=== PATIENT | female | born 1955 | race Caucasian/White ===

== ENCOUNTER → 2017-05-28 | Day surgery (SDC) | payer OTHER ==
[~2017-05-28] VITALS: Ht 162.6 cm; Wt 79.5 kg
[~2017-05-28] MED LIST: ATV/1 PO; DOXY100C76 PO; LIDOCAINE HCL 2% 2 ML VIAL (20MG/ML) ONE; MIDAZOLAM HCL 1 MG/ML 2ML VIAL ONE; MULT1PAK6 PO; ONDANSETRON INJ 2 MG/ML 2 ML VIAL IV PRN; PROPOFOL IV EMULSION 10 MG/ML 20 ML VIAL IV ONE; SCOPOLAMINE 1.5 MG TDSY TD ONE; [UNRECOGNIZED DRUG - OTHER] PO
[2017-05-28 13:47] VITALS: Ht 162.6 cm; Wt 79.5 kg
--- NOTE | 2017-05-28 13:56 | Endo History and Physical ---
History & Physical Date of Service: May 28, 2017. Chief Complaint: Colon cancer screening Referring Physician: History of Present Illness Patient for surveillance colonoscopy today. Last examination was approximately 5 years ago. She denies having any specific symptoms today. Past Surgical History Hx Cardiac Surgery: No Hx Internal Defibrillator: No Hx Pacemaker: No Hx Abdominal Surgery: No Hx of Implantable Prosthesis: No Hx Post-Op Nausea and Vomiting: No Hx Cancer Surgery: Yes (PARTIAL THYROIDECTOMY) Hx Thoracic Surgery: No Hx Orthopedic: No Hx Urinary Tract Surgery: No Family History Colon CA Social History Smoking Status: Former Smoker Hx Substance Use: No Hx Alcohol Use: Yes ("A FEW DRINKS/WEEK") Allergies Coded Allergies: Latex (Verified Allergy, Intermediate, IRRITATED SKIN, 05/16/17) Penicillins (Verified Allergy, Unknown, COUGH AND FEVER, 05/28/17) Current Medications Reported Home Medications Medications Dose Route/Sig Max Daily Dose Days Date Category Monodox (Doxycycline Monohydrate) 100 Mg Cap 100 Mg PO 05/28/17 Reported Ativan (Lorazepam) 1 Mg Tab 0.5-1 Tab PO HS PRN 05/16/17 Reported [Ningxia] 2 Oz PO QAM 05/16/17 Reported Emergen-C Vitamin C (Multiple Vitamins W/ Minerals) 1 Brandan Brandan 1 Pkt PO QAM 05/16/17 Reported Vital Signs Weight (Kilograms): 79.55 Height (Feet): 5 Height (Inches): 4 Date Time Temp Pulse Resp B/P (MAP) Pulse Ox O2 Delivery O2 Flow Rate FiO2 05/28/17 13:45 37.1 78 20 135/80 (98) 96 Room Air Physical Exam General Appearance: no apparent distress Respiratory/Chest: Auscultation: breath sounds normal Cardiovascular: Heart Auscultation: RRR Abdomen: Bowel Sounds: normal Inspection & Palpation: soft Assessment and Plan Patient for colorectal cancer screening today. We have discussed the risks to include bleeding, infection, perforation and pain.
--- NOTE | 2017-05-28 14:44 | Discharge Instructions ---
Endoscopy Patient Instructions Date / Procedure(s) Performed May 28, 2017. Colonoscopy Allergy Information Coded Allergies: Latex (Verified Allergy, Intermediate, IRRITATED SKIN, 05/16/17) Penicillins (Verified Allergy, Unknown, COUGH AND FEVER, 05/28/17) Discharge Date / Findings May 28, 2017. Diverticulosis of the left colon Internal hemorrhoids Medication Instructions Reported Home Medications Medications Dose Route/Sig Max Daily Dose Days Date Category Monodox (Doxycycline Monohydrate) 100 Mg Cap 100 Mg PO 05/28/17 Reported Ativan (Lorazepam) 1 Mg Tab 0.5-1 Tab PO HS PRN 05/16/17 Reported [Ningxia] 2 Oz PO QAM 05/16/17 Reported Emergen-C Vitamin C (Multiple Vitamins W/ Minerals) 1 Brandan Brandan 1 Pkt PO QAM 05/16/17 Reported Provider Instructions Activity Restrictions - No exercising or heavy lifting for 24 hours. - Do not drink alcohol the day of the procedure. - Do not drive a car or operate machinery until the day after the procedure. - Do not make any important decisions or sign important papers in 24 hours after the procedure. Following Day: - Return to full activity which may include returning to work/school. Diet Start your diet with liquids and light foods (jello, soup, juice, toast). Then eat your usual diet if not nauseated. Treatment For Common After Affects For mild abdominal pain, bloating, or excessive gas: - Rest - Eat lightly - Lie on right side Follow-Up Information Consider addition of a fiber supplement (fiber gummies, 1-2 per day) Repeat colonoscopy in 5 years Anesthesia Information What You Should Know You have had a procedure that required some medicine to reduce anxiety and discomfort. This treatment is called moderate sedation. After receiving the treatment, you may be sleepy, but you will be able to breathe on your own. The effects of the treatment may last for several hours. Follow these instructions along with Activity/Diet recommendations noted above: * Do NOT do anything where dizziness or clumsiness would be dangerous. * Rest quietly at home today, then you can be up and about tomorrow. * Have a responsible person stay with you the rest of today. * You may have had an I.V. today. If so, you may take the dressing off later today. Recommendations Call your doctor if: * Trouble breathing * Continuous vomiting for more than 24 hours * Temperature above 101 degrees * Severe abdominal pain or bloating * Pain not relieved by pain medicine ordered * There is increased drainage or redness from any incision * A large amount of rectal bleeding greater than 2-3 tablespoons. (If you had a polyp/s removed or have hemorrhoids, a small amount of blood - from the rectum is to be expected.) * You have any unanswered questions or concerns. IN THE EVENT OF A SERIOUS EMERGENCY, GO TO THE NEAREST EMERGENCY ROOM Your discharge instructions were prepared by provider Jose Cancino. Patient Instructions Signature Page Ann Souza Patient (or Guardian) Signature/Date: I have read and understand the instructions given to me by my caregivers. Caregiver/RN/Doctor Signature/Date: The above-named patient and/or guardian has received patient instructions on this date. + Original Patient Signature Page (only) stays with chart. Please make copy for patient.
--- NOTE | 2017-05-28 14:51 | GI REPORT ---
Procedure Date: 05/28/2017 2:09 PM Procedure: Colonoscopy Indications: Screening for colon cancer: Family history of colorectal cancer in distant relative(s) Medicines: Monitored Anesthesia Care Complications: No immediate complications. Estimated blood loss: Minimal. Estimated Blood Loss: Estimated blood loss was minimal. Procedure: Pre-Anesthesia Assessment: - Prior to the procedure, a History and Physical was performed, and patient medications, allergies and sensitivities were reviewed. The patient's tolerance of previous anesthesia was reviewed. - The risks and benefits of the procedure and the sedation options and risks were discussed with the patient. All questions were answered and informed consent was obtained. - Patient identification and proposed procedure were verified prior to the procedure by the physician, the nurse and the flash ranging crewmember. The procedure was verified in the procedure room. - Pre-procedure physical examination revealed no contraindications to sedation. - ASA Grade Assessment: II - A patient with mild systemic disease. - After reviewing the risks and benefits, the patient was deemed in satisfactory condition to undergo the procedure. - The anesthesia plan was to use monitored anesthesia care (MAC). - Immediately prior to administration of medications, the patient was re-assessed for adequacy to receive sedatives. - The heart rate, respiratory rate, oxygen saturations, blood pressure, adequacy of pulmonary ventilation, and response to care were monitored throughout the procedure. - The physical status of the patient was re-assessed after the procedure. After I obtained informed consent, the scope was passed under direct vision. Throughout the procedure, the patient's blood pressure, pulse, and oxygen saturations were monitored continuously. The Scope was introduced through the anus and advanced to the terminal ileum. The colonoscopy was somewhat difficult due to multiple diverticula in the colon. Successful completion of the procedure was aided by withdrawing and reinserting the scope. The patient tolerated the procedure well. The quality of the bowel preparation was good. Findings: The digital rectal exam findings include non-thrombosed external hemorrhoids. Pertinent negatives include normal sphincter tone. The terminal ileum appeared normal. Many small and large-mouthed diverticula were found in the sigmoid colon and in the descending colon. Internal hemorrhoids were found during retroflexion. The hemorrhoids were mild. The exam was otherwise without abnormality. Impression: - Non-thrombosed external hemorrhoids found on digital rectal exam. - The examined portion of the ileum was normal. - Mild diverticulosis in the sigmoid colon and in the descending colon. - Internal hemorrhoids. - The examination was otherwise normal. - No specimens collected. Recommendation: - Discharge patient to home (ambulatory). - Advance diet as tolerated today. - Use fiber, for example Citrucel, Fibercon, Konsyl or Metamucil. - Repeat colonoscopy in 5 years for screening purposes. - Return to GI office PRN. Jose Cancino D.O. Jose Cancino, 05/28/2017 2:50:44 PM This report has been signed electronically. Note Initiated On: 05/28/2017 2:09 PM I attest to the content of the Intraoperative Record and orders documented therein, exceptions below
[2017-05-28 14:55] VITALS: BP 123/83; PULSE 72; O2SAT 96
--- NOTE | 2017-05-28 15:03 | Anesthesiology Progress Note ---
Anesthesia Post Op Note Date & Time May 28, 2017 at 15:03 Vital Signs Pain Intensity: 0 Vital Signs Past 12 Hours Date Time Temp Pulse Resp B/P (MAP) Pulse Ox O2 Delivery O2 Flow Rate FiO2 05/28/17 14:39 72 16 138/100 (113) 95 Room Air 05/28/17 13:45 37.1 78 20 135/80 (98) 96 Room Air Notes Mental Status: alert / awake / arousable, participated in evaluation Pt Amnestic to Procedure: Yes Nausea / Vomiting: adequately controlled Pain: adequately controlled Airway Patency, RR, SpO2: stable & adequate BP & HR: stable & adequate Hydration State: stable & adequate Anesthetic Complications: no major complications apparent
== END | disposition home or self-care (01) ==
LOC: C.GI 13:29
PROVIDERS: ATTEND Internal Medicine Gastroenterology
DX: Z12.11 Encounter for screening for malignant neoplasm of colon (principal); K57.30 Diverticulosis of large intestine without perforation or abscess without bleeding; Z80.0 Family history of malignant neoplasm of digestive organs; Z87.891 Personal history of nicotine dependence; K64.4 Residual hemorrhoidal skin tags

== ENCOUNTER → 2017-09-04 | Outpatient (CLI) | payer OTHER ==
[~2017-09-04] MED LIST changes: -LIDOCAINE HCL 2% 2 ML VIAL (20MG/ML) ONE; -MIDAZOLAM HCL 1 MG/ML 2ML VIAL ONE; -ONDANSETRON INJ 2 MG/ML 2 ML VIAL IV PRN; -PROPOFOL IV EMULSION 10 MG/ML 20 ML VIAL IV ONE; -SCOPOLAMINE 1.5 MG TDSY TD ONE
--- NOTE | 2017-09-04 15:23 | MAMMOGRAPHY REPORT ---
BILATERAL DIGITAL SCREENING MAMMOGRAM TOMOSYNTHESIS WITH CAD: 09/04/2017 CLINICAL HISTORY: Routine screening. Patient has no complaints. TECHNIQUE: Breast tomosynthesis in addition to standard 2D mammography was performed. Current study was also evaluated with a Computer Aided Detection (CAD) system. COMPARISON: Comparison is made to exams dated: 07/30/2016 mammogram, 09/08/2014 mammogram, 02/27/2013 m ammogram, 07/09/2011 mammogram, 07/07/2010 mammogram, and 07/06/2009 mammogram - [facility] enter. BREAST COMPOSITION: The tissue of both breasts is heterogeneously dense, which may obscure small mas ses. FINDINGS: No suspicious masses, calcifications, or areas of architectural distortion are noted in ei ther breast. There has been no significant interval change compared to prior exams. Right medial gokul ast asymmetry is stable compared to multiple prior exams. IMPRESSION: ACR BI-RADS CATEGORY 2: BENIGN There is no mammographic evidence of malignancy. A 1 year screening mammogram is recommended. The pa tient will receive written notification of the results. Approximately 10% of breast cancers are not detected with mammography. A negative mammographic report should not delay biopsy if a clinically suggestive mass is present. Pauline Davidson M.D. /:09/04/2017 12:45:01 Anesthesiologist Assistant Certified: Rosario BOSE)(M), [facility] letter sent: Normal 1/2 BI-RADS Code: ACR BI-RADS Category 2: Benign
== END | disposition home or self-care (01) ==
LOC: C.MAMM 10:20
PROVIDERS: ATTEND Family Medicine
DX: Z12.31 Encounter for screening mammogram for malignant neoplasm of breast (principal)

== ENCOUNTER 2018-03-26 19:46 | Emergency (ER) | payer OTHER ==
[~2018-03-26] VITALS: Ht 167.6 cm; Wt 82.2 kg
[2018-03-26 19:56] VITALS: TEMP 36.5; Ht 167.6 cm; Wt 82.2 kg
[2018-03-26 20:29] VITALS: O2SAT 99
[2018-03-26 20:36] LABS: BASO % 0.4 %; BASO ABS # 0.04 K/uL (0-0.2); EOS % 0.3 %; EOS ABS # 0.03 K/uL (0-0.5); HEMATOCRIT 40.7 % (37-47); HEMOGLOBIN 13.9 g/dL (12.0-16.0); IG# 0.03 K/uL (0.00-0.02); LYMPH % 15.8 %; MEAN CELL VOLUME 84.8 fL (80-100); MEAN CORPUSCULAR HGB CONC 34.2 g/dl (32-36); MEAN PLATELET VOLUME 11.1 fL (7.4-10.4); MONO % 6.8 %; MONO ABS # 0.65 K/uL (0.11-0.59); NEUT % 76.4 %; NEUT ABS # 7.24 K/uL (1.4-6.5); PLATELET COUNT 211 K/uL (130-400); RED CELL DISTRIBUTION WIDTH CV 12.7 % (11.5-14.5); RED CELL DISTRIBUTION WIDTH SD 39.5 fL (36.4-46.3); WHITE BLOOD COUNT 9.49 K/uL (4.8-10.8)
[2018-03-26 20:55] LABS: ALKALINE PHOSPHATASE 75 U/L (45-117); ALT/SGPT 20 U/L (12-78); AST/SGOT 14 U/L (15-37); BLOOD UREA NITROGEN 17 mg/dl (7-18); CALCIUM 9.4 mg/dl (8.5-10.1); CARBON DIOXIDE 27 mmol/L (21-32); CREATININE 0.84 mg/dl (0.60-1.20); GLUCOSE 122 mg/dl (70-99); POTASSIUM 3.3 mmol/L (3.5-5.1); SODIUM 135 mmol/L (136-145); TOTAL PROTEIN 7.4 gm/dl (6.4-8.2)
[2018-03-26] MEDS ORDERED: GLYCDRO6 OPB (21:13)
[2018-03-26] MEDS ORDERED: MULT-190 PO (21:13)
[2018-03-26] MEDS ORDERED: ATV1 PO (21:13)
[2018-03-26] MEDS ORDERED: HYDR25TA5 PO (21:13)
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
[2018-03-26 23:54] VITALS: BP 163/92; PULSE 73; O2SAT 95
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
== END 2018-03-27 | disposition home or self-care (01) ==
LOC: C.EDB 19:47
DX: I10 Essential (primary) hypertension (principal); Z79.899 Other long term (current) drug therapy; Z91.040 Latex allergy status; Z88.0 Allergy status to penicillin